=== PATIENT | female | born 1975 | race Caucasian/White ===

== ENCOUNTER 2019-07-09 18:10 | Emergency (ER) | payer MEDICAID ==
[~2019-07-09] VITALS: Ht 154.9 cm; Wt 82.6 kg
[~2019-07-09 18:10] MED LIST: AMOX1TAB10 PO; FERR240T9 PO; IBUP800T48 PO; MED4DP PO; PRENAT PO
[2019-07-09 18:20] VITALS: BP 136/69; PULSE 107; RESP 20; Ht 154.9 cm; Wt 82.6 kg
[2019-07-09] MEDS ORDERED: METHYLPREDNISOLONE 125 MG INJ IV ONE (19:30)
[2019-07-09] MEDS ORDERED: CEFTRIAXONE 1 GM/50 ML (PMX) 50 ML IVPB ONE (19:30)
[2019-07-09] MEDS ORDERED: SOD CHLORIDE 0.9% 500 ML IV ONE (19:30)
[2019-07-09] MEDS ORDERED: ACETAMINOPHEN 325 MG TAB PO ONE (20:00)
== END 2019-07-09 21:44 | disposition home or self-care (01) ==
LOC: FTE 18:10
DX: J02.0 Streptococcal pharyngitis (principal)
CPT/HCPCS: 87880; 96374; 96375; J0696; J2930; J7040; Z7502; Z7610